=== PATIENT | male | born 1950 | race Native Hawaiian/Other Pacific Islander ===

== ENCOUNTER 2023-01-16 06:06 | Outpatient (CLI) | payer OTHER ==
[2023-01-16 06:31] LABS: PLATELET COUNT 313 K/uL (142-355)
[2023-01-16 06:47] LABS: POTASSIUM 4.7 mmol/L (3.6-5.2)
== END 2023-01-16 23:20 | disposition home or self-care (01) ==
LOC: LAB 06:06
PROVIDERS: ATTEND Internal Medicine
DX: E11.9 Type 2 diabetes mellitus without complications (principal); E78.49 Other hyperlipidemia; I10 Essential (primary) hypertension
CPT/HCPCS: 80053; 80061; 83036; 85027; 87081

== ENCOUNTER 2023-01-19 14:15 | Outpatient (CLI) | payer OTHER | END 2023-01-19 19:01 | disposition home or self-care (01) | LOC: LAB 14:15 | PROVIDERS: ATTEND Internal Medicine | DX: L08.89 Other specified local infections of the skin and subcutaneous tissue (principal) | CPT/HCPCS: 87070; 87077; 87185; 87186; 87205 ==

== ENCOUNTER 2023-02-17 14:28 | Outpatient (CLI) | payer OTHER | END 2023-02-17 19:30 | disposition home or self-care (01) | LOC: RAD 14:28 | PROVIDERS: ATTEND Internal Medicine | DX: M54.59 Other low back pain (principal); M25.551 Pain in right hip ==

== ENCOUNTER 2023-02-25 13:04 | Outpatient (CLI) | payer OTHER | END 2023-02-25 19:05 | disposition home or self-care (01) | LOC: LAB 13:04 | PROVIDERS: ATTEND Internal Medicine | DX: L53.8 Other specified erythematous conditions (principal) | CPT/HCPCS: 87070; 87205 ==